=== PATIENT | male | born 1995 | race Caucasian/White ===

== ENCOUNTER 2017-01-16 15:03 | Inpatient (IN) | payer BC ==
[~2017-01-16] VITALS: Ht 175.3 cm; Wt 76.7 kg
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
[2017-01-16 18:40] LABS: BASOPHIL % 0.3 % (0-2); PLATELET COUNT 208 x10^3mcL (130-400); RED CELL DISTRIBUTION WIDTH 12.8 % (11.5-14.5)
[2017-01-16 18:49] LABS: CALCIUM 9.2 mg/dL (8.5-10.1); CARBON DIOXIDE 33.2 mmol/L (21-32); CHLORIDE SERUM 100 mmol/L (98-107); GFR1 > 60 mL/min; GLUCOSE SERUM 97 mg/dL (74-106); POTASSIUM SERUM 3.7 mmol/L (3.5-5.1); SODIUM SERUM 141 mmol/L (136-145)
[2017-01-16 18:55] LABS: ALBUMIN 4.3 g/dL (3.4-5.0); ALKALINE PHOSPHATASE 57 U/L (46-116); ALT/SGPT 23 U/L (16-63); AST/SGOT 18 U/L (15-37); BILIRUBIN TOTAL 0.74 mg/dL (0.20-1.00); TOTAL PROTEIN, SERUM 7.5 g/dL (6.4-8.2)
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
[2017-01-16 20:14] LABS: CHOLESTEROL/HDL RATIO 3.1; MAGNESIUM 1.9 mg/dL (1.8-2.4); PHOSPHOROUS 3.9 mg/dL (2.5-4.9)
[2017-01-16 20:20] LABS: T3 TOTAL 1.07 ng/mL
[2017-01-16 20:23] LABS: T4(THYROXINE) 7.9 ug/dL (4.7-13.3)
[2017-01-16 20:29] VITALS: BP 128/76
[2017-01-16 20:36] VITALS: Ht 175.3 cm; Wt 76.7 kg
[2017-01-16 20:40] LABS: FREE T4 1.05 ng/dL (0.76-1.46); FREE THYROXINE INDEX 2.7 ug/dL (1.4-4.5)
--- NOTE | 2017-01-16 22:02 | NUR ---
NORCO 1 TAB PO GIVEN FOR RIGHT THUMB PAIN 6/10 IN PAIN SCALE. WILL CONTINUE TO MONITOR.
[2017-01-16 22:30] LABS: microscopic required? NO
--- NOTE | 2017-01-16 22:30 | NUR ---
VOIDED, URINE SPECIMEN SENT TO LAB.
[2017-01-16 22:43] LABS: UA SPECIFIC GRAVITY <=1.005 (1.005-1.035); urine erythrocyte NEGATIVE (NEGATIVE)
[2017-01-16 22:56] LABS: AMPHETAMINE QUAL UR NONE DETECTED (NEG <=1000)
--- NOTE | 2017-01-16 23:15 | NUR ---
RESTING WITH EYES CLOSE. RUE ELVATED ON PILLOW. IVF NS INFUSING WELL. DRSG TO RIGHT THUMB CDI.
[2017-01-17 05:34] VITALS: BP 135/68
[2017-01-17 06:04] LABS: BASOPHIL % 0.2 % (0-2); PLATELET COUNT 185 x10^3mcL (130-400); RED CELL DISTRIBUTION WIDTH 12.6 % (11.5-14.5)
[2017-01-17 06:35] LABS: CALCIUM 8.7 mg/dL (8.5-10.1); CARBON DIOXIDE 26.9 mmol/L (21-32); CHLORIDE SERUM 104 mmol/L (98-107); GFR1 > 60 mL/min; GLUCOSE SERUM 89 mg/dL (74-106); POTASSIUM SERUM 3.6 mmol/L (3.5-5.1); SODIUM SERUM 141 mmol/L (136-145)
--- NOTE | 2017-01-17 07:25 | NUR ---
RECEIVED THE PATIENT AWAKE AND ORIENTED TO PERSON, PLACE AND TIME. PATIENT DENIED SHORTNESS OF BREATH. RIGHT THUMB WITH SPICA SPLINT IN PLACE. PATIENT STATED HAVING MILD TINGLING TO RIGHT THUMB AT THIS TIME. CONTINUE TO MONITOR AND MEDICATE FOR PAIN PRN. IVF NS VIA H/L TO LFA. TELE # 7 READS SINUS RHYTHMS. CALL LIGHT WITHIN REACH. SIDE RAILS UP X2.
--- NOTE | 2017-01-17 08:47 | NUR ---
DR. OLIVER AND THE TEAM WERE MAKING ROUND TO SEE THE PATIENT. THE CARE PLAN WAS DISCUSSED WITH THE PATIENT AND HIS MOTHER AT BEDSIDE. BOTH VERBALIZED UNDERSTANDING.
[2017-01-17 09:55] VITALS: BP 127/78
--- NOTE | 2017-01-17 11:41 | NUR ---
PT C/O PAIN AT LEFT ARM AND RIGHT FOOT 12/07. MEDEICTAED PER EMAR. PT TOLERATED WELL. PT ADVISED OF MED POSSIBLE SIDE EFFECTS. PT VERBALIZED UNDERSTANDING. FAMILY AT BEDSIDE. CALL LIGHT WITHIN REACH.
[2017-01-17 13:59] VITALS: BP 137/80
--- NOTE | 2017-01-17 15:06 | NUR ---
THE DRESSINGS AT ALL ABRASIONS WERE REMOVED. THE WOUNDS WERE CLEANSED WITH WOUND CLEANSER; NEOSPORIN OINTMENT WAS APPLIED TO ALL THE WOUNDS AGAIN BEFORE NEW DRESSINGS WERE APPLIED TO THEM. THE PATIENT TOLERATED THE PROCEDURE.
[2017-01-17] MEDS ORDERED: COL100 PO (15:18)
[2017-01-17] MEDS ORDERED: LAC PO (15:20)
[2017-01-17] MEDS ORDERED: KEFLEX500 M1 PO (15:20)
[2017-01-17 15:36] VITALS: BP 137/80
[2017-01-17] MEDS ORDERED: APAP/HYDROCODON1 T13 PO (15:40)
--- NOTE | 2017-01-17 16:30 | NUR ---
DISCHARGE INSTRUCTION AND PRESCRIPTION WERE IMPLEMENTED TO THE PATIENT. ALL QUESTIONS WERE ADDRESSED AND THE PATIENT VERBALIZED UNDERSTANDING. H/L WAS REMOVED WITH CATH INTACT. TELE AND ID BAND WERE REMOVED. THE PATIENT WAS TAKEN OUT TO THE DISCHARGE OFFICE VIA WHEELCHAIR IN STABLE CONDITION. ALL BELONGINGS AND SOME DRESSING WERE SENT HOME WITH THE PATIENT UPON DISCHARGE.
== END 2017-01-17 16:30 | disposition home or self-care (01) | DRG 563 ==
LOC: ED 15:03 → DU 18:35
PROVIDERS: Emergency Medicine; ADMIT Family Medicine
PROC: 0PSRXZZ Reposition Right Thumb Phalanx, External Approach (ICD-10-PCS; principal; 2017-01-16)
DX: S62.521B Displaced fracture of distal phalanx of right thumb, initial encounter for open fracture (principal); S80.212A Abrasion, left knee, initial encounter; S80.211A Abrasion, right knee, initial encounter; S60.812A Abrasion of left wrist, initial encounter; S60.811A Abrasion of right wrist, initial encounter; S60.512A Abrasion of left hand, initial encounter; S60.511A Abrasion of right hand, initial encounter; S30.810A Abrasion of lower back and pelvis, initial encounter; Z68.25 Body mass index [BMI] 25.0-25.9, adult; V28.4XXA Motorcycle driver injured in noncollision transport accident in traffic accident, initial encounter; Y92.410 Unspecified street and highway as the place of occurrence of the external cause
CPT/HCPCS: 83880; 84439; J0690; J2270; J7030; Q0092